=== PATIENT | female | born 1990 | race Caucasian/White ===

== ENCOUNTER 2022-03-19 12:55 | Outpatient (CLI) | payer BC, SELFPAY ==
[2022-03-19 22:13] LABS: Chlamydia DNA Amplified* NOT DETECTED (No Detected); GC DNA Amplified* NOT DETECTED (No Detected)
== END 2022-03-19 12:56 | disposition home or self-care (01) ==
PROVIDERS: PCP Family Medicine; Visit Provider Registered Nurse
DX: Z01.419 Encounter for gynecological examination (general) (routine) without abnormal findings (principal); R07.89 Other chest pain; F41.9 Anxiety disorder, unspecified; Z11.3 Encounter for screening for infections with a predominantly sexual mode of transmission; Z12.4 Encounter for screening for malignant neoplasm of cervix
CPT/HCPCS: 87491; 87591; 87624; 88175

== ENCOUNTER 2022-04-02 09:02 | Outpatient (CLI) | payer BC, SELFPAY ==
[2022-04-02 15:13] LABS: C Reactive Protein* < 0.5 mg/dL (0.5-1.0)
[2022-04-02 15:54] LABS: Cholesterol* 158 mg/dL (90-199)
[2022-04-02 15:55] LABS: Glucose* 89 mg/dL (60-115); HDL Cholesterol* 65 mg/dL (>=50); LDL Cholesterol Calculated 87 mg/dL (<100); Triglycerides* 32 mg/dL (40-149)
== END 2022-04-02 09:03 | disposition home or self-care (01) ==
PROVIDERS: Registered Nurse; PCP Family Medicine; Visit Provider Family Medicine
DX: R43.9 Unspecified disturbances of smell and taste (principal); Z13.1 Encounter for screening for diabetes mellitus; Z13.6 Encounter for screening for cardiovascular disorders; Z13.29 Encounter for screening for other suspected endocrine disorder
CPT/HCPCS: 80061; 82947; 84443; 86140